=== PATIENT | female | born 1960 | race Caucasian/White ===

== ENCOUNTER 2018-02-03 04:41 | Day surgery (SDC) | payer OTHER ==
[~2018-02-03 04:41] MED LIST: CRESTOR5 MG PO; DITROPAN XL15 MG PO; M.V.I. ADULT10 ML; M.V.I. ADULT10 ML IV; METFORMIN HCL750 MG PO; OMEGA 3 500 SO1 EACH PO; PROTONIX40 M1 PO; SYNTHROID75 MCG PO; ZOFRAN4 MG PO
== END 2018-02-03 11:45 | disposition home or self-care (01) ==
LOC: CIR.AMB 04:41
DX: K80.10 Calculus of gallbladder with chronic cholecystitis without obstruction (principal)

== ENCOUNTER 2018-12-06 06:00 | Day surgery (SDC) | payer OTHER ==
[~2018-12-06 06:00] MED LIST changes: +BACLOFEN10 MG PO
== END 2018-12-06 11:15 | disposition home or self-care (01) ==
LOC: CIR.AMB 06:00
DX: M67.441 Ganglion, right hand (principal)

== ENCOUNTER 2021-08-04 07:50 | Outpatient (CLI) | payer OTHER | END 2021-08-04 07:51 | disposition home or self-care (01) | LOC: RX STUDY 07:50 | PROVIDERS: ATTEND Internal Medicine Cardiovascular Disease | DX: R10.9 Unspecified abdominal pain (principal); K21.9 Gastro-esophageal reflux disease without esophagitis ==

== ENCOUNTER 2022-01-22 05:40 | Day surgery (SDC) | payer OTHER ==
[~2022-01-22] VITALS: Ht 167.6 cm; Wt 74.8 kg
[2022-01-22] MEDS ORDERED: ZITHROMAX200 MG PO (09:59)
== END 2022-01-22 13:10 | disposition home or self-care (01) ==
LOC: CIR.AMB 05:40
PROVIDERS: ATTEND Obstetrics & Gynecology
DX: N88.8 Other specified noninflammatory disorders of cervix uteri (principal); Z20.822 Contact with and (suspected) exposure to COVID-19; Z91.048 Other nonmedicinal substance allergy status; Z86.16 Personal history of COVID-19; E03.9 Hypothyroidism, unspecified; K21.9 Gastro-esophageal reflux disease without esophagitis; R87.810 Cervical high risk human papillomavirus (HPV) DNA test positive